=== PATIENT | female | born 1990 | race American Indian/Alaskan Native ===

== ENCOUNTER 2020-06-10 00:38 | Emergency (ER) | payer SELFPAY ==
--- NOTE | 2020-06-10 02:26 | Emergency Department Report ---
ED Asthma HPI - General Chief Complaint: Adult Asthma Stated Complaint: ASHTMA PUI?: No Time Seen by Provider: 06/10/20 02:05 Source: patient Mode of arrival: Ambulatory Limitations: No Limitations - History of Present Illness Initial Comments: Patient is a 30-year-old female that presents emergency room with complaints of wheezing and asthmatic sounds. Patient states she has uncontrolled asthma patient has follow-up with a doctor for. Patient states she ran out of her albuterol. Patient states EMS brought her to the hospital. Patient states that EMS gave her a nebulizer with albuterol and steroids. Patient states she is feeling much better. Patient denies cough at this time. Patient states that her symptoms have resolved. Patient states that she typically gets refills of albuterol and steroids when this happens. Patient states she was short of breath but that has resolved. Patient denies chest pain. Patient denies fever and chills. Patient denies cough. Patient denies recent travel. Patient denies recent international travel. Patient denies exposure to the novel coronavirus. Patient denies sick contacts. Patient denies fever and chills. Patient denies cough. Patient denies diarrhea. Patient denies coming in contact with anybody with symptoms of the novel coronavirus. MD Complaint: wheezing -: Sudden Asthma History: childhood onset, history of frequent attac, history of prior ED visit Context: ran out of meds, medication non-compliance Treatments Prior to Arrival: inhaled bronchodilator, IV steroid - Related Data Current Asthma Therapy: inhaled bronchodilator Previous Rx's Medication Instructions Recorded Last Taken Type Albuterol Mdi (or & Nicu Only) 2 puff IH QID PRN #8.5 gram 06/10/20 Unknown Rx [ProAir HFA Inhaler] methylPREDNISolone [Medrol 4MG 4 mg PO DAILY 6 Days #1 tab.ds.pk 06/10/20 Unknown Rx DOSEPAK (21 tabs)] Allergies Allergy/AdvReac Type Severity Reaction Status Date / Time Penicillins Allergy Anaphylaxis Verified 06/10/20 00:50 ED Review of Systems ROS: Stated complaint: ASHTMA Other details as noted in HPI Constitutional: denies: chills, fever Eyes: denies: eye pain, eye discharge, vision change ENT: denies: ear pain, throat pain Respiratory: shortness of breath, wheezing. denies: cough Cardiovascular: denies: chest pain, palpitations Endocrine: no symptoms reported Gastrointestinal: denies: abdominal pain, nausea, diarrhea Genitourinary: denies: urgency, dysuria, discharge Musculoskeletal: denies: back pain, joint swelling, arthralgia Skin: denies: rash, lesions Neurological: denies: headache, weakness, paresthesias Psychiatric: denies: anxiety, depression Hematological/Lymphatic: denies: easy bleeding, easy bruising ED Past Medical Hx - Past Medical History Previous Medical History?: Yes Hx Psychiatric Treatment: Yes (anxiety) Hx Asthma: Yes - Surgical History Past Surgical History?: No - Family History Family history: no significant - Social History Smoking Status: Never Smoker Substance Use Type: None - Medications Home Medications: Home Medications Medication Instructions Recorded Confirmed Last Taken Type Albuterol Mdi (or & Nicu Only) 2 puff IH QID PRN #8.5 gram 06/10/20 Unknown Rx [ProAir HFA Inhaler] methylPREDNISolone [Medrol 4MG 4 mg PO DAILY 6 Days #1 tab.ds.pk 06/10/20 Unknown Rx DOSEPAK (21 tabs)] ED Physical Exam - General Limitations: No Limitations General appearance: alert, in no apparent distress - Head Head exam: Present: atraumatic, normocephalic - Eye Eye exam: Present: normal appearance - ENT ENT exam: Present: mucous membranes moist - Neck Neck exam: Present: normal inspection - Respiratory Respiratory exam: Present: normal lung sounds bilaterally. Absent: respiratory distress, wheezes, rales, rhonchi, chest wall tenderness, accessory muscle use, decreased breath sounds - Cardiovascular Cardiovascular Exam: Present: regular rate, normal rhythm. Absent: systolic murmur, diastolic murmur, rubs, gallop - GI/Abdominal GI/Abdominal exam: Present: soft, normal bowel sounds - Extremities Exam Extremities exam: Present: normal inspection - Back Exam Back exam: Present: normal inspection - Neurological Exam Neurological exam: Present: alert, oriented X3 - Psychiatric Psychiatric exam: Present: normal affect, normal mood - Skin Skin exam: Present: warm, dry, intact, normal color. Absent: rash ED Course - Reevaluation(s) Reevaluation #1: I discussed all clinical findings with patient. I discussed plan of care with patient. Patient agrees with plan of care. Patient is stable for discharge. Patient will be discharged home. Patient given discharge instructions. Patient voiced understanding of discharge instructions. 06/10/20 02:24 ED Medical Decision Making - Medical Decision Making Patient is a 30-year-old female that presents emergency room with complaints of asthmatic sounds, wheeze. Patient was brought in by EMS and was given steroids and albuterol treatment her symptoms resolved. Patient is stable for discharge. Patient does not require any further evaluation in the ER. Patient will be given a refill of her albuterol inhaler and a steroid pack. - Differential Diagnosis Asthmatic exacerbation. Shortness of breath, wheeze Critical care attestation.: If time is entered above; I have spent that time in minutes in the direct care of this critically ill patient, excluding procedure time. ED Disposition Clinical Impression: Asthma exacerbation Qualifiers: Asthma severity: mild Asthma persistence: intermittent Qualified Code(s): J45.21 - Mild intermittent asthma with (acute) exacerbation Disposition: TO HOME OR SELFCARE Is pt being admited?: No Does the pt Need Aspirin: No Condition: Stable Instructions: Asthma (ED) Additional Instructions: Patient to follow-up with primary care in 2 to 3 days. Patient to follow-up with pulmonology in 2 to 3 days. Patient to rest. Patient to increase water. Patient to avoid strenuous exercise or heavy lifting until cleared by hat body inspector and primary care. Patient to take Tylenol or ibuprofen as needed for pain. Patient to take meds as directed. Patient to return to the ER if condition worsens, changes or new symptoms arise. Prescriptions: methylPREDNISolone [Medrol 4MG DOSEPAK (21 tabs)] 4 mg PO DAILY 6 Days #1 tab.ds.pk Albuterol Mdi (or & Nicu Only) [ProAir HFA Inhaler] 2 puff IH QID PRN #8.5 gram PRN Reason: Shortness Of Breath Referrals: PRIMARY CARE, [Primary Care Provider] - 2-3 Days ADEN ORDONEZ MD [Staff Physician] - 2-3 Days KIMMY CALDERON MD [Staff Physician] - 2-3 Days Time of Disposition: 02:27
[2020-06-10 02:35] VITALS: BP 119/70
== END 2020-06-10 02:35 | disposition home or self-care (01) ==
LOC: ED 00:38
DX: J45.901 Unspecified asthma with (acute) exacerbation (principal); F41.9 Anxiety disorder, unspecified; Z88.0 Allergy status to penicillin; Z79.899 Other long term (current) drug therapy
CPT/HCPCS: 99282

== ENCOUNTER 2020-06-27 22:26 | Emergency (ER) | payer SELFPAY ==
[2020-06-28 01:59] LABS: Bacteria,Urine 2+ /HPF (Negative); Bilirubin,Urine NEG (Negative); Blood,Urine NEG (Negative); Color,Urine Yellow (Yellow); Mucus,Urine FEW /HPF; Protein,Urine <15 mg/dL mg/dL (Negative)
[2020-06-28 02:08] LABS: HCG Qualitative,Urine Positive (Negative)
--- NOTE | 2020-06-28 02:23 | Emergency Department Report ---
ED Female HPI - General Chief complaint: Urogenital-Female Stated complaint: BURNING URINATION Time Seen by Provider: 06/28/20 02:04 Source: patient Mode of arrival: Ambulatory Limitations: No Limitations - History of Present Illness Initial comments: 30-year-old -[place] female presents to the emergency room complaining of pain with urination x1 week. Patient states she took AZO cranberry pills that is [id number] and he got better but reports it has come back. Patient states that her urine is darker. She denies any fever chills she does admit to nausea but no vomiting. She admits to vaginal discharge but no vaginal bleeding. She denies any abdominal pain but just states that she has pressure when she voids. Patient does not have a primary care provider she does have OB doctor Dr. Ivana Zepeda. Patient is 4 para 2 with 2 abortions. MD Complaint: dysuria Onset/Timin -: week(s) Severity: moderate Improves with: none Worsens with: none Are you Now?: No Last Menstrual Period: 06/13/20 EDC: 03/20/21 Associated Symptoms: vaginal discharge, nausea/vomiting (No vomiting). denies: abdominal pain, fever/chills - Related Data Sexually active: Yes : 4 Para: 2 A: 2 Previous Rx's Medication Instructions Recorded Last Taken Type Albuterol Mdi (or & Nicu Only) 2 puff IH QID PRN #8.5 gram 06/10/20 Unknown Rx [ProAir HFA Inhaler] methylPREDNISolone [Medrol 4MG 4 mg PO DAILY 6 Days #1 tab.ds.pk 06/10/20 Unknown Rx DOSEPAK (21 tabs)] Nitrofurantoin Dooly/M-Cryst 100 mg PO Q12HR 7 Days #14 capsule 06/28/20 Unknown Rx [Macrobid CAP] Allergies Allergy/AdvReac Type Severity Reaction Status Date / Time Penicillins Allergy Anaphylaxis Verified 06/10/20 00:50 ED Review of Systems ROS: Stated complaint: BURNING URINATION Other details as noted in HPI Comment: All other systems reviewed and negative ED Past Medical Hx - Past Medical History Previous Medical History?: Yes Hx Psychiatric Treatment: Yes (anxiety) Hx Asthma: Yes Additional medical history: Herniated Disc x 4 - Surgical History Past Surgical History?: No - Social History Smoking Status: Never Smoker - Medications Home Medications: Home Medications Medication Instructions Recorded Confirmed Last Taken Type Albuterol Mdi (or & Nicu Only) 2 puff IH QID PRN #8.5 gram 06/10/20 Unknown Rx [ProAir HFA Inhaler] methylPREDNISolone [Medrol 4MG 4 mg PO DAILY 6 Days #1 tab.ds.pk 06/10/20 Unknown Rx DOSEPAK (21 tabs)] Nitrofurantoin Dooly/M-Cryst 100 mg PO Q12HR 7 Days #14 capsule 06/28/20 Unknown Rx [Macrobid CAP] ED Physical Exam - General Limitations: No Limitations General appearance: alert, in no apparent distress - Head Head exam: Present: atraumatic, normocephalic - ENT ENT exam: Present: mucous membranes moist - Neck Neck exam: Present: normal inspection, full ROM - GI/Abdominal GI/Abdominal exam: Present: soft. Absent: distended, tenderness, guarding - Back Exam Back exam: Present: normal inspection, full ROM - Neurological Exam Neurological exam: Present: alert, oriented X3 - Psychiatric Psychiatric exam: Present: normal affect, normal mood - Skin Skin exam: Present: warm, dry, intact, normal color. Absent: rash ED Course Vital Signs 06/28/20 00:18 Temperature 98.1 F Pulse Rate 78 Respiratory 17 Rate Blood Pressure 120/64 O2 Sat by Pulse 100 Oximetry ED Medical Decision Making - Medical Decision Making 30-year-old -[place] female presents to the emergency room complaining of pain with urination x1 week. Patient states she took AZO cranberry pills that is [id number] and he got better but reports it has come back. Patient states that her urine is darker. She denies any fever chills she does admit to nausea but no vomiting. She admits to vaginal discharge but no vaginal bleeding. She denies any abdominal pain but just states that she has pressure when she voids. Patient does not have a primary care provider she does have OB doctor Dr. Ivana Zepeda. Patient is 4 para 2 with 2 abortions. Urinalysis is positive for urinary tract infection patient is positive for . We will treat patient with Macrobid 100 mg p.o. twice daily for 10 days. Patient is instructed to follow-up with her primary [facility]ARE FACULTY which is Dr. Ivana Zepeda. Patient verbalized understanding. Critical care attestation.: If time is entered above; I have spent that time in minutes in the direct care of this critically ill patient, excluding procedure time. ED Disposition Clinical Impression: Positive blood test UTI (urinary tract infection) Qualifiers: Urinary tract infection type: site unspecified Hematuria presence: without hematuria Qualified Code(s): N39.0 - Urinary tract infection, site not specified Disposition: TO HOME OR SELFCARE Is pt being admited?: No Does the pt Need Aspirin: No Condition: Stable Instructions: Urinary Tract Infection in Women (ED), (ED) Additional Instructions: Complete antibiotics as prescribed. Increase your water intake. Start your vitamins. Follow-up with Dr. Ivana Zepeda in the next week. Prescriptions: Nitrofurantoin Dooly/M-Cryst [Macrobid CAP] 100 mg PO Q12HR 7 Days #14 capsule Referrals: PRIMARY MD [facility] [Primary Care Provider] - 3-5 Days IVANA ZEPEDA MD [Referring] - 3-5 Days Forms: Work/School Release Form(ED)
[2020-06-28 03:07] VITALS: BP 122/80
== END 2020-06-28 02:45 | disposition home or self-care (01) ==
LOC: ED 22:26
DX: O26.891 Other specified pregnancy related conditions, first trimester (principal); O23.41 Unspecified infection of urinary tract in pregnancy, first trimester; O99.511 Diseases of the respiratory system complicating pregnancy, first trimester; J45.909 Unspecified asthma, uncomplicated; Z3A.01 Less than 8 weeks gestation of pregnancy
CPT/HCPCS: 81001; 81025; 87086; 99283

== ENCOUNTER 2020-08-21 03:57 | Emergency (ER) | payer MEDICAID | END 2020-08-21 04:47 | disposition left against medical advice (07) | LOC: ED 03:57 | DX: R20.8 Other disturbances of skin sensation (principal); Z53.21 Procedure and treatment not carried out due to patient leaving prior to being seen by health care provider ==

== ENCOUNTER 2020-12-18 04:48 | Outpatient (CLI) | payer MEDICAID ==
[2020-12-18] MEDS ORDERED: LACTATED RINGERS 1,000 ML IV ONE (05:35)
[2020-12-18 07:31] LABS: Bacteria,Urine 1+ /HPF (Negative); Bilirubin,Urine NEG (Negative); Blood,Urine NEG (Negative); Color,Urine Yellow (Yellow); Mucus,Urine FEW /HPF; Protein,Urine <15 mg/dL mg/dL (Negative); Urobilinogen,Urine < 2.0 mg/dL (<2.0)
[2020-12-18 08:13] VITALS: BP 125/57
== END 2020-12-18 08:35 | disposition home or self-care (01) ==
LOC: TRG 04:48 → APU 04:51 → TRG 08:35
PROVIDERS: ATTEND Obstetrics & Gynecology
DX: O26.893 Other specified pregnancy related conditions, third trimester (principal); R10.9 Unspecified abdominal pain; O99.513 Diseases of the respiratory system complicating pregnancy, third trimester; J45.909 Unspecified asthma, uncomplicated; O47.03 False labor before 37 completed weeks of gestation, third trimester; Z3A.29 29 weeks gestation of pregnancy; Z87.891 Personal history of nicotine dependence
CPT/HCPCS: 59025; 81001; 96360; J7120